=== PATIENT | male | born 1945 | race Caucasian/White ===

== ENCOUNTER → 2019-01-08 | Outpatient (CLI) | payer MEDICARE, OTHER ==
--- NOTE | 2019-01-08 14:26 | PCVCIMAG ---
APPROVED REPORT Study performed: 01/08/2019 09:32:11 Exam: Stress Echocardiogram Indication: Chest pain , Dyspnea Patient Location: Echo lab Stress Nurse: Lilia Easton RN Room #: 2 Status: routine Ht: 5 ft 9 in HR: 76 bpm BP: 136/84 mmHg Rhythm: NSR Medical History Medical History: CAD non obstructive, HTN Cardiac Risk Factors: HTN Previous Cardiac Procedures: NONE Pretest Chest Pain Characteristics: No chest pain Exercise History: Physically active Procedure The patient underwent an Exercise Stress Test using the Adryan Protocol. Blood pressure, heart rate, and EKG were monitored. An Echocardiogram was performed by surveillance technician in four stages in quad fashion. At peak stress, four selected images were obtained and placed side by side with resting images for comparison. Stress Test Details Stress Test: Exercise stress testing was performed using a Adryan protocol. HR Resting HR: 76 bpmMax Heart Rate (APMHR): 148 bpm Max HR Achieved: 235 bpmTarget HR (85% APMHR): 125 bpm % of APMHR: 158 Recovery HR: 100 bpm HR response to stress: Accelerated HR response to stress BP Resting BP: 136/84 mmHg Max BP: 160/68 mmHg Recovery BP: 146/84 mmHg BP response to stress: Normal blood pressure response to stress. ECG Resting ECG: Sinus Rhythm Stress ECG: SVT ST Change: Horizontal ST depression Maximum ST Deviation: 3 mm Arrhythmia: Rare PVCs, PACs Recovery ECG: SVT at 230 bpm, converting to NSR approx [address] Change: Horizontal ST depression Recovery ST Deviation: 3 mm Recovery Arrhythmia: None Clinical Reason for Termination: Maximal effort, EKG change Stress Symptoms: dyspnea,chest pressure began after SVT began Exercise duration: 10 min 29 sec Highest Stage Achieved: Stage 4: 4.2 mph at 16% grade. Exercise capacity: 13.7 METs Overall Exercise Capacity for Age: Excellent Scale: Active Angina Score: Non-Limiting Symptoms resolved during recovery. No ischemic changes following cessation of the PSVT. Stress ECG Conclusion The patient exercised according to the ADRYAN protocol for 10:29 mins; achieving a work level of 13.7 METS. The resting heart rate of 76 bpm johan to a maximum heart rate of 235 bpm. This value represent 158% of the maximal, age-predicted heart rate. The resting blood pressure of 136/84 mmHg, johan to a maximum blood pressure of 162/90 mmHg. The exercise test was stopped due to SVT,fatigue,dyspnea. Amezcua Treadmill Score is -9.0 which is Moderate risk. Pre-Stress Echo The resting Echocardiogram showed normal left ventricular contractility with an estimated Ejection Fraction of about 55-60%. Normal wall motion in all segments on baseline images. Post-Stress Echo The stress Echocardiogram showed normal left ventricular contractility with an estimated Ejection Fraction of about 65-70%. Difficult assessment of regional systolic function and the presence of PSVT at 230 bpm Conclusion Clinical Response: Equivocal Exercise Capacity: Superior Stress ECG Response: Abnormal Stress Echo Images: Equivocal Suggest myocardial perfusion imaging, scheduled. PSVT (230bpm) occurred in the absence of palpitations although was associated with shortness of breath and diaphoresis, consistent with intermittent presenting symptom. Given Beau's intolerance to medications, would recommend a low threshold for ablation. Critical Notification Critical Value: Yes Physician Notified Date: 01/08/2019 <Conclusion> Suggest myocardial perfusion imaging, scheduled. PSVT (230bpm) occurred in the absence of palpitations although was associated with shortness of breath and diaphoresis, consistent with intermittent presenting symptom. Given Beau's intolerance to medications, would recommend a low threshold for ablation.
== END | disposition home or self-care (01) ==
LOC: PCVCIMAG 09:34
PROVIDERS: ATTEND Internal Medicine
DX: I25.10 Atherosclerotic heart disease of native coronary artery without angina pectoris (principal); I10 Essential (primary) hypertension; R07.9 Chest pain, unspecified
CPT/HCPCS: 93325; 93351

== ENCOUNTER → 2019-01-18 | Outpatient (CLI) | payer MEDICARE, OTHER ==
[~2019-01-18] MED LIST: REGADENOSON 0.4 MG/5 ML DISP.SYRIN. IV ONE
--- NOTE | 2019-01-18 17:28 | PCVCIMAG ---
APPROVED REPORT Imaging Protocol: Rest Tc-99m/Stress Tc-99m 1 day Study performed: 01/18/2019 09:00:12 Indication: Chest pain, Dyspnea Patient Location: Out-Patient Stress Nurse: Katrin Perrin RN, Lilia Easton RN [place] Tech:Bertha Mathewswellington [facility] Ht: 5 ft 9 in Wt: 183 lbs BSA: 1.99 m2 HR: 61 bpm BP: 168/81 mmHg BMI: 27.0 Rhythm: Normal Sinus Rhythm Medical History Medical History: HTN, CAD Medications: Losartan Allergies: No known drug allergies Cardiac Risk Factors: Age Pretest Chest Pain Characteristics: No chest pain Exercise History: Physically active Resting Data Rest SPECT myocardial perfusion imaging was performed in supine position 45 minutes following the intravenous injection of 9.9 mCi of Tc-99m Sestamibi. Time of rest injection: 839 Date: 01/18/2019 Administration Route: IV Administration Site: Right Hand Pharmacologic Stress Pharmacologic stress test was performed by injecting Regadenoson 0.4 mg IV push over 10-15 seconds immediately followed by the intravenous injection of 33.9 mCi of Tc-99m Sestamibi. Time of stress injection: 949 Date: 01/18/2019 Administration Route: IV Administration Site: Right Hand Gated Stress SPECT was performed 45 minutes after stress injection. The images were gated to evaluate regional wall motion and calculate left ventricular ejection fraction. Stress Test Details Stress Test: Pharmacologic stress testing performed using 0.4 mg of regadenoson per 5 mL given IV over 10 seconds. Reason for pharmacologic stress test: physical limitation. HRMax Heart Rate (APMHR): 148 bpm Resting HR: 61 bpmTarget HR (85% APMHR): 125 bpm Max HR Achieved: 99 bpm % of APMHR: 66 Recovery HR: 76 bpm BP Resting BP: 168/81 mmHg Max BP: 138/70 mmHg Recovery BP: 160/81 mmHg ECG Resting ECG: Normal Sinus Rhythm Stress ECG: Sinus Rhythm Arrhythmia: PVC's Recovery ECG: Sinus Rhythm Clinical Reason for Termination: Completed protocol Stress Symptoms: Chest pain, Chest pressure, Dyspnea Exercise duration: 4 min 00 sec Exercise capacity: 1.6 METs Symptoms resolved during recovery. Stress ECG Conclusion ECG: Non-ischemic Study Quality Study: Good Study Data Post stress, the left ventricular ejection was 84%.. SSS: 0 SRS: 0 SDS: 0 TID = 0.83. Perfusion No evidence of stress induced ischemia or prior myocardial infarction. Wall Motion Normal left ventricular size and function with no regional wall motion abnormalities. Nuclear Conclusion No evidence of stress induced ischemia or prior myocardial infarction. Normal left ventricular size and function with no regional wall motion abnormalities. Post stress, the left ventricular ejection was 84%. No prior study available for comparison. Interpreted by: Carlos Torre MD Electronically Approved: 01/18/2019 14:13:59 <Conclusion> ECG: Non-ischemic
== END | disposition home or self-care (01) ==
LOC: PCVCIMAG 08:17
PROVIDERS: ATTEND Internal Medicine Cardiovascular Disease
DX: I25.10 Atherosclerotic heart disease of native coronary artery without angina pectoris (principal); R06.00 Dyspnea, unspecified; I10 Essential (primary) hypertension
CPT/HCPCS: 78452; 93017; A9500; J2785